=== PATIENT | female | born 1965 | race Caucasian/White ===

== ENCOUNTER 2016-11-17 08:44 | Inpatient (IN) | payer OTHER ==
[2016-11-17] VITALS (11 sets, daily range): BP systolic 88–118; BP diastolic 52–62
[~2016-11-17] VITALS: Ht 157.5 cm; Wt 68.2 kg
[~2016-11-17 08:44] MED LIST: ADVAIR 500/501 DISK IH; ADVAIR HFA120 INHAL1 IH; AMOX TR-K CLV1 EAC4 PO; AMOXICILLIN250 MG PO; AMOXICILLIN875 MG PO; ASPIR 8181 M1 PO; ASTEPRO 0.15%30 ML BOTH NARES; AZITHROMYCIN250 MG PO; AZITHROMYCIN250 MG1 PO; BACTRIM,SEPT1 TABLET PO; CARDIZEM CD,CA240 MG PO; CARDIZEM CD120 MG PO; CARDIZEM30 MG PO; CEFTIN500 MG PO; CENTRUM SILVER1 EAC3 PO; CHLORASEPTIC177 ML MM; CLEOCIN150 MG PO; CLONAZEPAM0.5 MG PO; CLONAZEPAM1 MG PO; COLACE100 MG PO; CULTURELLE CAP1 EACH PO; CYCLOBENZAPRINE10 MG PO; CYMBALTA20 MG PO; CYMBALTA60 MG PO; Cyclobenzaprine Hcl PO; DALIRESP500 MCG PO; DESYREL 150 MG150 MG PO; DESYREL100 MG PO; DETROL2 MG PO; DILTIAZEM 24HR120 MG PO; DULOXETINE HCL60 MG PO; EYE WASH IRRIG BOTH EYES; EYE WASH IRRIG LEFT EYE; FISH OIL300 MG PO; FLAGYL500 MG PO; FLEXERIL10 MG PO; GEODON20 MG PO; HYDROXYZINE HCL25 MG PO; KLONOPIN0.5 M1 PO; KLONOPIN1 MG PO; LAMICTAL XR50 MG PO; LAMICTAL100 MG PO; LAMICTAL150 M1 PO; LAMOTRIGINE25 MG PO; LIPITOR20 MG PO; LYRICA100 MG PO; LYRICA150 MG PO; LYRICA300 MG PO; LYRICA50 MG PO; LYRICA75 MG PO; MELOXICAM15 MG PO; MOBIC15 MG PO; MONTELUKAST SOD10 MG PO; NABUMETONE500 MG PO; NICOTINE PATCH1 EAC2 TD; NORCO 5/3251 TABLET PO; NYSTATIN100000 UN1 PO; OMEPRAZOLE20 MG PO; PRAVASTATIN SOD80 MG PO; PREDNISONE10 MG PO; PREDNISONE20 MG PO; PREDNISONE5 MG PO; PRILOSEC20 MG PO; PROAIR HFA8.5 GM IH; PROVENTIL HFA6.7 GM IH; PROVENTIL,2.5 MG/0.5 IH; PROVENTIL,2.5 MG/3 M IH; QUETIAPINE FUMA50 MG PO; RANITIDINE HCL150 M1 PO; ROBITUSSIN100 MG/5 M PO; Remove Nicotine Patch TD; SINGULAIR10 MG PO; SPIRIVA RESPIMAT4 GM IH; SPIRIVA1 INHALATI IH; SYMBICORT60 INHALAT IH; TAMIFLU75 MG PO; TERBINAFINE HC250 MG PO; THEO-24200 MG PO; THEO-DUR,THEOC200 MG PO; THEOPHYLLINE A200 M1 PO; THEOPHYLLINE400 MG PO; TOLTERODINE TART2 MG PO; TRAZODONE HCL150 MG PO; TUMS500 MG PO; VENTOLIN HFA18 GM IH; VICOPROFEN1 TABLET PO; VOLTAREN 1% GE100 GM TP; ZANAFLEX4 M1 PO; ZANTAC150 MG PO; ZIPRASIDONE HCL60 MG PO; ZIPRASIDONE HCL80 MG PO; ZITHROMAX Z-PA250 MG PO; ZOFRAN ODT8 MG PO; [UNRECOGNIZED DRUG - REMARK]; buspar
[2016-11-17 10:30] LABS: CHLORIDE 76 mEq/L (99-109); POTASSIUM 3.7 mEq/L (3.7-5.4); SODIUM 127 mEq/L (136-147)
[2016-11-17 10:30] LABS: INFLUENZA A VIRAL ANTIGEN NEGATIVE; INFLUENZA B VIRAL ANTIGEN NEGATIVE
[2016-11-17 10:31] LABS: MCH 25.4 PG (29.0-34.0); MCV 79.4 FL (83-99); MEAN PLAT.VOLUME 9.9 uM^3 (9.5-12.4); PLATELET COUNT 386 K/uL (156-360); RBC DIS.WIDTH-CV 14.3 % (11.8-14.6); RBC DIS.WIDTH-SD 41.6 % (39-53); RED BLOOD COUNT 2.52 M/uL (3.80-5.20); WHITE BLOOD COUNT 19.7 K/uL (4.1-10.2)
[2016-11-17 10:32] LABS: GLUCOSE 166 mg/dL (70-99)
[2016-11-17 10:34] LABS: ANION GAP 17 MEQ/L (2-14)
[2016-11-17 10:36] LABS: GFR ESTIMATE (CALCULATED) > 59 mL/min/
[2016-11-17 10:37] LABS: UREA NITROGEN (BUN) 16 mg/dL (9-23)
[2016-11-17 10:43] LABS: TROP-I INTERPRETATION NEGATIVE; TROPONIN-I < 0.01 ng/mL (0.0-0.30)
[2016-11-17] MEDS ORDERED: CLONAZEPAM1 MG PO (12:16)
[2016-11-17] MEDS ORDERED: INCRUSE ELLI62.5 MCG IH (12:27)
[2016-11-17] MEDS ORDERED: PROAIR HFA8.5 GM IH (12:27)
[2016-11-17] MEDS ORDERED: BREO ELLIPTA 21 EACH IH (12:29)
[2016-11-17] MEDS ORDERED: AZELASTINE137 MCG/0. BOTH NARES (13:08)
[2016-11-17 14:11] LABS: TOTAL BILIRUBIN 0.7 mg/dL (0.0-1.0)
[2016-11-17 14:12] LABS: ALKALINE PHOSPHATASE 158 IU/L (3-129)
[2016-11-17 14:15] LABS: DIRECT BILIRUBIN 0.4 mg/dL (0.0-0.3)
[2016-11-17 14:59] LABS: IMM.RETIC FRACTION 12.3 % (3-19); RETIC HGB EQUIVALENT 27.4 (28-36); RETICULOCYTE COUNT 0.7 % (0.5-1.8)
[2016-11-17 15:01] LABS: TOTAL BILIRUBIN 0.8 mg/dL (0.0-1.0)
[2016-11-17 15:02] LABS: ALKALINE PHOSPHATASE 171 IU/L (3-129)
[2016-11-17 15:05] LABS: DIRECT BILIRUBIN 0.5 mg/dL (0.0-0.3)
[2016-11-17 19:58] LABS: HEMATOCRIT 23.1 % (36.0-46.0); MCH 26.6 PG (29.0-34.0); MCHC 32.5 G/DL (30.0-36.0); MCV 81.9 FL (83-99); MEAN PLAT.VOLUME 9.5 uM^3 (9.5-12.4); PLATELET COUNT 388 K/uL (156-360); RBC DIS.WIDTH-CV 14.6 % (11.8-14.6); RBC DIS.WIDTH-SD 43.1 % (39-53); RED BLOOD COUNT 2.82 M/uL (3.80-5.20); WHITE BLOOD COUNT 21.9 K/uL (4.1-10.2)
[2016-11-17 20:04] LABS: BASE EXCESS 17.5 mEq/L (-3 to +3); BICARBONATE 42.3 mEq/L (22-26); CARBOXY HGB 0.6 % (0-5); METHEMOGLOBIN 0.7 % (0-1.5); PCO2 53 mm Hg (35-45); PO2 59 mm Hg (80-100); pH 7.51 (7.35-7.45)
[2016-11-17 20:05] LABS: COMMENTS - BLOOD GASES C+A+; DEVICE NC; O2 FLOW 4 L/MIN; SITE RR
[2016-11-17 20:10] LABS: INTER. NORMALIZED RATIO 1.1; PROTHROMBIN TIME 11.3 (9.2-11.2)
[2016-11-17 20:11] LABS: CHLORIDE 83 mEq/L (99-109); MAGNESIUM 1.7 mg/dL (1.3-2.7); POTASSIUM 3.9 mEq/L (3.7-5.4); SODIUM 131 mEq/L (136-147)
[2016-11-17 20:13] LABS: GLUCOSE 171 mg/dL (70-99)
[2016-11-17 20:14] LABS: ANION GAP 13 MEQ/L (2-14)
[2016-11-17 20:17] LABS: GFR ESTIMATE (CALCULATED) > 59 mL/min/; UREA NITROGEN (BUN) 11 mg/dL (9-23)
[2016-11-17 20:54] LABS: ABS NEUTROPHIL COUNT 20.9; BAND NEUTROPHILS 4.3 % (0-8.0); EOSINOPHIL ABS CT 0; INSTRUMENT ABS NEUTROPHIL CT 20.7 K/uL; LYMPHOCYTES 3.5 % (15.0-45.0); SEG.NEUTROPHILS 91.3 % (46.0-76.0)
[2016-11-17 21:15] LABS: ADD MIUA? NO; BILIRUBIN NEGATIVE; BLOOD NEGATIVE; COLOR YELLOW ((YELLOW)); GLUCOSE (STRIP) NEGATIVE; KETONES 5; LEUKOCYTES NEGATIVE; NITRITE NEGATIVE; PROTEIN (STRIP) NEGATIVE; UCUL ADDED? NO; UROBILINOGEN 0.2 MG/DL (0.2-1.0)
[2016-11-17 22:00] LABS: METH RESISTANT S AUREUS PCR NEGATIVE (NEGATIVE)
[2016-11-17 22:05] LABS: PROBE CHECK PASS; SPECIMEN PROCESSING CONTROL PASS
[2016-11-18] VITALS (23 sets, daily range): BP systolic 96–145; BP diastolic 51–66
[2016-11-18 01:39] LABS: IRON 93 MCG/DL (35-150)
[2016-11-18 05:38] LABS: AMPHETAMINES QUANT VALUE 0 NG/ML; BARBITUATES QUANT VALUE 0 NG/ML; BENZODIAZEPINES QUANT VALUE 0 NG/ML; BENZODIAZEPINES, URINE SCREEN Negative (200 ng/mL); OPIATES QUANTITATIVE VALUE 0 NG/ML; PHENCYCLIDINE QUANT VALUE 0 NG/ML
[2016-11-18 05:56] LABS: BASE EXCESS 12.7 mEq/L (-3 to +3); BICARBONATE 38.5 mEq/L (22-26); CARBOXY HGB 0.9 % (0-5); COMMENTS - BLOOD GASES C+A+; DEVICE VENTURI MASK; FI02 50 %; METHEMOGLOBIN 1.1 % (0-1.5); O2 FLOW 12 L/MIN; PCO2 58 mm Hg (35-45); PO2 59 mm Hg (80-100); SITE RR; pH 7.43 (7.35-7.45)
[2016-11-18 07:09] LABS: HEMATOCRIT 26.7 % (36.0-46.0); MCH 27.6 PG (29.0-34.0); MCHC 33.3 G/DL (30.0-36.0); MCV 82.9 FL (83-99); MEAN PLAT.VOLUME 9.3 uM^3 (9.5-12.4); PLATELET COUNT 306 K/uL (156-360); RBC DIS.WIDTH-CV 14.2 % (11.8-14.6); RBC DIS.WIDTH-SD 42.7 % (39-53); RED BLOOD COUNT 3.22 M/uL (3.80-5.20)
[2016-11-18 07:12] LABS: WHITE BLOOD COUNT 13.7 K/uL (4.1-10.2)
[2016-11-18 08:12] LABS: ANION GAP 11 MEQ/L (2-14); CHLORIDE 87 MEQ/L (99-109); GFR ESTIMATE (CALCULATED) > 59 mL/min/; GLUCOSE 171 mg/dL (70-99); POTASSIUM 3.2 MEQ/L (3.7-5.4); SAMPLE HEMOLYSIS CHECK 0; SAMPLE ICTERIC CHECK 0; SAMPLE LIPEMIA CHECK 0; SODIUM 132 MEQ/L (136-147); UREA NITROGEN (BUN) 8 mg/dL (9-23)
[2016-11-19] VITALS (25 sets, daily range): BP systolic 0–121; BP diastolic 0–67
[2016-11-19 05:22] LABS: HEMATOCRIT 21.7 % (36.0-46.0); MCH 27.5 PG (29.0-34.0); MCHC 32.3 G/DL (30.0-36.0); MCV 85.1 FL (83-99); MEAN PLAT.VOLUME 9.6 uM^3 (9.5-12.4); PLATELET COUNT 229 K/uL (156-360); RBC DIS.WIDTH-CV 14.7 % (11.8-14.6); RBC DIS.WIDTH-SD 45.5 % (39-53)
[2016-11-19 05:37] LABS: RED BLOOD COUNT 2.55 M/uL (3.80-5.20)
[2016-11-19 06:29] LABS: ANION GAP 8 MEQ/L (2-14); GFR ESTIMATE (CALCULATED) > 59 mL/min/; GLUCOSE 199 mg/dL (70-99); MAGNESIUM 1.6 mg/dl (1.3-2.7); SAMPLE HEMOLYSIS CHECK 0; SAMPLE ICTERIC CHECK 0; SAMPLE LIPEMIA CHECK 0; UREA NITROGEN (BUN) 11 mg/dL (9-23)
[2016-11-19 06:30] LABS: SODIUM 140 MEQ/L (136-147)
[2016-11-19 06:31] LABS: CHLORIDE 99 MEQ/L (99-109)
[2016-11-19 11:59] LABS: ANTI-HEPATITIS A VIRUS (IGM) Nonreactive; HAV INDEX 0.14; HBSG INDEX 0.22; HPCA INDEX 0.24
[2016-11-19 12:01] LABS: ANTI-HEPATITIS B CORE (IGM) Nonreactive; HBC IgM INDEX 0.07
[2016-11-19 13:39] LABS: MCH 27.5 PG (29.0-34.0); MCHC 32.4 G/DL (30.0-36.0); MEAN PLAT.VOLUME 10.7 uM^3 (9.5-12.4); NRBC (%) 0.2 /100 WBC (0-0); PLATELET COUNT 191 K/uL (156-360); RBC DIS.WIDTH-SD 46.3 % (39-53); RED BLOOD COUNT 2.47 M/uL (3.80-5.20); WHITE BLOOD COUNT 10.6 K/uL (4.1-10.2)
[2016-11-20] VITALS (13 sets, daily range): BP systolic 98–118; BP diastolic 44–73
[2016-11-20 04:57] LABS: MCHC 32.1 G/DL (30.0-36.0); MCV 84.2 FL (83-99); PLATELET COUNT 189 K/uL (156-360); RBC DIS.WIDTH-CV 15.6 % (11.8-14.6); RBC DIS.WIDTH-SD 47.7 % (39-53); RED BLOOD COUNT 2.85 M/uL (3.80-5.20); WHITE BLOOD COUNT 9.1 K/uL (4.1-10.2)
[2016-11-20 05:15] LABS: POTASSIUM 4.6 mEq/L (3.7-5.4); SODIUM 137 mEq/L (136-147)
[2016-11-20 05:16] LABS: MAGNESIUM 1.9 mg/dL (1.3-2.7)
[2016-11-20 05:17] LABS: GLUCOSE 204 mg/dL (70-99)
[2016-11-20 05:18] LABS: ANION GAP 7 MEQ/L (2-14)
[2016-11-20 05:21] LABS: GFR ESTIMATE (CALCULATED) > 59 mL/min/
[2016-11-20 05:22] LABS: UREA NITROGEN (BUN) 13 mg/dL (9-23)
[2016-11-20 05:29] LABS: CHLORIDE 99 mEq/L (99-109)
[2016-11-21] VITALS (9 sets, daily range): BP systolic 101–129; BP diastolic 55–70
[2016-11-21 07:43] LABS: HEMATOCRIT 23.9 % (36.0-46.0); MCH 28.4 PG (29.0-34.0); MCHC 32.6 G/DL (30.0-36.0); MCV 86.9 FL (83-99); PLATELET COUNT 200 K/uL (156-360); RBC DIS.WIDTH-SD 51.1 % (39-53); RED BLOOD COUNT 2.75 M/uL (3.80-5.20); WHITE BLOOD COUNT 6.6 K/uL (4.1-10.2)
[2016-11-21 08:22] LABS: ANION GAP 5 MEQ/L (2-14); CHLORIDE 98 MEQ/L (99-109); GFR ESTIMATE (CALCULATED) > 59 mL/min/; GLUCOSE 168 mg/dL (70-99); MAGNESIUM 1.7 mg/dl (1.3-2.7); POTASSIUM 4.7 MEQ/L (3.7-5.4); SAMPLE HEMOLYSIS CHECK 0; SAMPLE ICTERIC CHECK 0; SAMPLE LIPEMIA CHECK 0; SODIUM 138 MEQ/L (136-147); UREA NITROGEN (BUN) 15 mg/dL (9-23)
[2016-11-22] VITALS (8 sets, daily range): BP systolic 100–123; BP diastolic 56–66
[2016-11-22 05:27] LABS: MCH 27.9 PG (29.0-34.0); MCHC 31.7 G/DL (30.0-36.0); MEAN PLAT.VOLUME 9.4 uM^3 (9.5-12.4); PLATELET COUNT 214 K/uL (156-360); RBC DIS.WIDTH-CV 15.4 % (11.8-14.6); RBC DIS.WIDTH-SD 50.1 % (39-53); WHITE BLOOD COUNT 7.4 K/uL (4.1-10.2)
[2016-11-22 05:31] LABS: RED BLOOD COUNT 3.41 M/uL (3.80-5.20)
[2016-11-22 05:51] LABS: ANION GAP 6 MEQ/L (2-14); CHLORIDE 99 MEQ/L (99-109); GFR ESTIMATE (CALCULATED) > 59 mL/min/; GLUCOSE 200 mg/dL (70-99); MAGNESIUM 1.6 mg/dl (1.3-2.7); POTASSIUM 4.9 MEQ/L (3.7-5.4); SAMPLE HEMOLYSIS CHECK 0; SAMPLE ICTERIC CHECK 0; SAMPLE LIPEMIA CHECK 0; SODIUM 139 MEQ/L (136-147); UREA NITROGEN (BUN) 12 mg/dL (9-23)
[2016-11-23 03:11] VITALS: BP 131/63
[2016-11-23 06:28] LABS: HEMATOCRIT 29.8 % (36.0-46.0); MCH 28.3 PG (29.0-34.0); MCHC 31.9 G/DL (30.0-36.0); MCV 88.7 FL (83-99); MEAN PLAT.VOLUME 9.4 uM^3 (9.5-12.4); PLATELET COUNT 201 K/uL (156-360); RBC DIS.WIDTH-CV 15.5 % (11.8-14.6); RBC DIS.WIDTH-SD 50.1 % (39-53); RED BLOOD COUNT 3.36 M/uL (3.80-5.20); WHITE BLOOD COUNT 7.5 K/uL (4.1-10.2)
[2016-11-23 06:53] LABS: ANION GAP 5 MEQ/L (2-14); CHLORIDE 97 MEQ/L (99-109); GFR ESTIMATE (CALCULATED) > 59 mL/min/; GLUCOSE 192 mg/dL (70-99); MAGNESIUM 1.6 mg/dl (1.3-2.7); POTASSIUM 4.6 MEQ/L (3.7-5.4); SAMPLE HEMOLYSIS CHECK 0; SAMPLE ICTERIC CHECK 0; SAMPLE LIPEMIA CHECK 0; SODIUM 137 MEQ/L (136-147); UREA NITROGEN (BUN) 11 mg/dL (9-23)
[2016-11-23 07:15] VITALS: BP 120/69
[2016-11-23 11:44] VITALS: BP 113/55
[2016-11-23 17:00] VITALS: BP 115/65
[2016-11-23 19:43] VITALS: BP 116/61
[2016-11-24] VITALS (7 sets, daily range): BP systolic 108–124; BP diastolic 56–70
[2016-11-24 04:51] LABS: HEMATOCRIT 29.8 % (36.0-46.0); MCH 27.9 PG (29.0-34.0); MCHC 31.5 G/DL (30.0-36.0); MCV 88.4 FL (83-99); MEAN PLAT.VOLUME 9.4 uM^3 (9.5-12.4); PLATELET COUNT 219 K/uL (156-360); RBC DIS.WIDTH-CV 15.3 % (11.8-14.6); RBC DIS.WIDTH-SD 49.5 % (39-53); RED BLOOD COUNT 3.37 M/uL (3.80-5.20); WHITE BLOOD COUNT 8.1 K/uL (4.1-10.2)
[2016-11-24 05:14] LABS: CHLORIDE 98 mEq/L (99-109); POTASSIUM 4.6 mEq/L (3.7-5.4); SODIUM 139 mEq/L (136-147)
[2016-11-24 05:16] LABS: GLUCOSE 267 mg/dL (70-99)
[2016-11-24 05:17] LABS: ANION GAP 4 MEQ/L (2-14)
[2016-11-24 05:19] LABS: MAGNESIUM 1.5 mg/dL (1.3-2.7)
[2016-11-24 05:20] LABS: GFR ESTIMATE (CALCULATED) > 59 mL/min/
[2016-11-24 05:21] LABS: UREA NITROGEN (BUN) 10 mg/dL (9-23)
[2016-11-24 16:46] LABS: INTER. NORMALIZED RATIO 1.1; PROTHROMBIN TIME 11.4 (9.2-11.2); PTT 24.4 (25-32)
[2016-11-25 03:37] VITALS: BP 118/60
[2016-11-25 04:36] LABS: HEMATOCRIT 30.8 % (36.0-46.0); MCH 27.5 PG (29.0-34.0); MCHC 30.8 G/DL (30.0-36.0); MEAN PLAT.VOLUME 9.3 uM^3 (9.5-12.4); NRBC (%) 0.3 /100 WBC (0-0); PLATELET COUNT 212 K/uL (156-360); RBC DIS.WIDTH-CV 15.3 % (11.8-14.6); RBC DIS.WIDTH-SD 49.5 % (39-53); RED BLOOD COUNT 3.46 M/uL (3.80-5.20); WHITE BLOOD COUNT 7.6 K/uL (4.1-10.2)
[2016-11-25 04:44] LABS: CHLORIDE 97 mEq/L (99-109); POTASSIUM 4.9 mEq/L (3.7-5.4); SODIUM 139 mEq/L (136-147)
[2016-11-25 04:46] LABS: MAGNESIUM 1.8 mg/dL (1.3-2.7)
[2016-11-25 04:47] LABS: INTER. NORMALIZED RATIO 1.1; PROTHROMBIN TIME 11.6 (9.2-11.2); PTT 55.8 (25-32)
[2016-11-25 04:48] LABS: ANION GAP 2 MEQ/L (2-14)
[2016-11-25 04:50] LABS: GFR ESTIMATE (CALCULATED) > 59 mL/min/
[2016-11-25 04:57] LABS: GLUCOSE 236 mg/dL (70-99)
[2016-11-25 05:02] LABS: UREA NITROGEN (BUN) 10 mg/dL (9-23)
[2016-11-25 07:07] VITALS: BP 122/64
[2016-11-25 11:54] LABS: TOTAL BILIRUBIN 0.3 mg/dL (0.0-1.0)
[2016-11-25 12:13] LABS: ALKALINE PHOSPHATASE 91 IU/L (3-129)
[2016-11-25 12:16] LABS: DIRECT BILIRUBIN 0.2 mg/dL (0.0-0.3)
[2016-11-25 19:55] VITALS: BP 114/59
[2016-11-25 20:00] VITALS: BP 114/59
[2016-11-26 03:50] VITALS: BP 111/57
[2016-11-26 06:43] LABS: HEMATOCRIT 32.1 % (36.0-46.0); MCH 27.8 PG (29.0-34.0); MCHC 30.8 G/DL (30.0-36.0); MCV 90.2 FL (83-99); MEAN PLAT.VOLUME 9.6 uM^3 (9.5-12.4); PLATELET COUNT 238 K/uL (156-360); RBC DIS.WIDTH-CV 15.7 % (11.8-14.6); RBC DIS.WIDTH-SD 51.8 % (39-53); RED BLOOD COUNT 3.56 M/uL (3.80-5.20); WHITE BLOOD COUNT 7.8 K/uL (4.1-10.2)
[2016-11-26 06:54] LABS: INTER. NORMALIZED RATIO 1.4; PROTHROMBIN TIME 14.2 (9.2-11.2); PTT 36.1 (25-32)
[2016-11-26 08:15] VITALS: BP 114/65
[2016-11-26 11:49] VITALS: BP 107/51
[2016-11-26 16:30] VITALS: BP 110/57
[2016-11-26 19:52] VITALS: BP 120/80
[2016-11-26 23:33] VITALS: BP 106/58
[2016-11-27 03:46] VITALS: BP 104/51
[2016-11-27 03:47] LABS: HEMATOCRIT 33.4 % (36.0-46.0); MCH 27.6 PG (29.0-34.0); MCHC 30.8 G/DL (30.0-36.0); MCV 89.5 FL (83-99); PLATELET COUNT 189 K/uL (156-360); RBC DIS.WIDTH-CV 15.9 % (11.8-14.6); RED BLOOD COUNT 3.73 M/uL (3.80-5.20); WHITE BLOOD COUNT 7.2 K/uL (4.1-10.2)
[2016-11-27 03:50] LABS: MEAN PLAT.VOLUME 11.8 uM^3 (9.5-12.4)
[2016-11-27 03:58] LABS: INTER. NORMALIZED RATIO 2.4
[2016-11-27 04:02] LABS: PROTHROMBIN TIME 24.6 (9.2-11.2)
[2016-11-27 08:33] LABS: Estimated Average Glucose 154 mg/dL (70-123)
[2016-11-27 09:00] VITALS: BP 104/51
[2016-11-27 11:30] VITALS: BP 104/52
[2016-11-27 17:25] VITALS: BP 102/52
[2016-11-27 19:52] VITALS: BP 109/61
[2016-11-27 23:57] VITALS: BP 110/88
[2016-11-28 04:12] VITALS: BP 109/81
[2016-11-28 04:27] LABS: C DIFF TOXIN NEGATIVE (NEGATIVE)
[2016-11-28 04:28] LABS: PROBE CHECK PASS; SPECIMEN PROCESSING CONTROL PASS
[2016-11-28 05:57] LABS: PROTHROMBIN TIME 32.1 (9.2-11.2); PTT 63.6 (25-32)
[2016-11-28 07:18] VITALS: BP 110/55
[2016-11-28 10:57] VITALS: BP 103/59
[2016-11-28 14:58] VITALS: BP 114/63
[2016-11-28 20:00] VITALS: BP 110/67
[2016-11-28 23:27] VITALS: BP 118/65
[2016-11-29 03:31] VITALS: BP 108/60
[2016-11-29 06:50] LABS: HEMATOCRIT 31.3 % (36.0-46.0); MCH 28.9 PG (29.0-34.0); MCHC 31.6 G/DL (30.0-36.0); MCV 91.3 FL (83-99); MEAN PLAT.VOLUME 10.2 uM^3 (9.5-12.4); PLATELET COUNT 283 K/uL (156-360); RBC DIS.WIDTH-CV 17.2 % (11.8-14.6); RBC DIS.WIDTH-SD 56.6 % (39-53); RED BLOOD COUNT 3.43 M/uL (3.80-5.20); WHITE BLOOD COUNT 6.9 K/uL (4.1-10.2)
[2016-11-29 07:18] VITALS: BP 114/63
[2016-11-29 07:25] LABS: INTER. NORMALIZED RATIO 2.2; PROTHROMBIN TIME 22.6 (9.2-11.2)
[2016-11-29 11:01] VITALS: BP 113/63
[2016-11-29] MEDS ORDERED: DILTIAZEM 24HR180 MG PO (11:04)
[2016-11-29] MEDS ORDERED: FOLIC ACID1 MG PO (11:08)
[2016-11-29] MEDS ORDERED: OXYCONTIN15 MG PO (11:09)
[2016-11-29] MEDS ORDERED: OXYCODONE HCL5 MG PO (11:09)
[2016-11-29] MEDS ORDERED: LYRICA75 MG PO (11:09)
[2016-11-29] MEDS ORDERED: PREDNISONE5 MG PO (11:09)
[2016-11-29] MEDS ORDERED: CLONAZEPAM1 MG PO (11:09)
[2016-11-29] MEDS ORDERED: AUGMENTIN875 MG PO (11:11)
[2016-11-29] MEDS ORDERED: COUMADIN3 MG PO (11:11)
[2016-11-29 14:55] VITALS: BP 116/64
== END 2016-11-29 18:26 | DRG 356 ==
LOC: EME 08:44 → 4EAST 13:34 → 4WEST 13:34 → EDOF 13:34 → 4EAST 14:32 → 4WEST 18:12 → 4EAST 11-20 17:47 → 5SOUTH 11-27 19:08 → 4EAST 11-27 19:22 → 5SOUTH 11-27 19:31
PROVIDERS: Emergency Medicine; Hospitalist; Internal Medicine; Internal Medicine Critical Care Medicine
PROC: 30233N1 Transfusion of Nonautologous Red Blood Cells into Peripheral Vein, Percutaneous Approach (ICD-10-PCS; principal; 2016-11-17)
PROC: 0W9H30Z Drainage of Retroperitoneum with Drainage Device, Percutaneous Approach (ICD-10-PCS; 2016-11-18)
PROC: 06H03DZ Insertion of Intraluminal Device into Inferior Vena Cava, Percutaneous Approach (ICD-10-PCS; 2016-11-19)
PROC: 0WW Anatomical Regions, General, Revision (ICD-10-PCS; 2016-11-20)
PROC: 0W9H30Z Drainage of Retroperitoneum with Drainage Device, Percutaneous Approach (ICD-10-PCS; 2016-11-21)
PROC: 0W9H30Z Drainage of Retroperitoneum with Drainage Device, Percutaneous Approach (ICD-10-PCS; 2016-11-27)
PROC: 0WPH30Z Removal of Drainage Device from Retroperitoneum, Percutaneous Approach (ICD-10-PCS; 2016-11-27)
PROC: 0WPH30Z Removal of Drainage Device from Retroperitoneum, Percutaneous Approach (ICD-10-PCS; 2016-11-28)
PROC: 0W9H30Z Drainage of Retroperitoneum with Drainage Device, Percutaneous Approach (ICD-10-PCS; 2016-11-28)
DX: K68.19 Other retroperitoneal abscess (principal); S36.892A Contusion of other intra-abdominal organs, initial encounter; W19.XXXA Unspecified fall, initial encounter; Y92.009 Unspecified place in unspecified non-institutional (private) residence as the place of occurrence of the external cause; R78.81 Bacteremia; B96.89 Other specified bacterial agents as the cause of diseases classified elsewhere; I82.423 Acute embolism and thrombosis of iliac vein, bilateral; D62 Acute posthemorrhagic anemia; J96.11 Chronic respiratory failure with hypoxia; J44.1 Chronic obstructive pulmonary disease with (acute) exacerbation; Z99.81 Dependence on supplemental oxygen; I47.1 Supraventricular tachycardia; T85.618A Breakdown (mechanical) of other specified internal prosthetic devices, implants and grafts, initial encounter; Y84.8 Other medical procedures as the cause of abnormal reaction of the patient, or of later complication, without mention of misadventure at the time of the procedure; R91.8 Other nonspecific abnormal finding of lung field; S80.01XA Contusion of right knee, initial encounter; S80.02XA Contusion of left knee, initial encounter; X50.9XXA Other and unspecified overexertion or strenuous movements or postures, initial encounter; E43 Unspecified severe protein-calorie malnutrition; Z68.25 Body mass index [BMI] 25.0-25.9, adult; G89.18 Other acute postprocedural pain; M54.9 Dorsalgia, unspecified; E78.5 Hyperlipidemia, unspecified; K59.00 Constipation, unspecified; K21.9 Gastro-esophageal reflux disease without esophagitis; M79.7 Fibromyalgia; J45.909 Unspecified asthma, uncomplicated; F32.9 Major depressive disorder, single episode, unspecified; F41.9 Anxiety disorder, unspecified; M51.27 Other intervertebral disc displacement, lumbosacral region; R29.6 Repeated falls; M19.90 Unspecified osteoarthritis, unspecified site; F17.210 Nicotine dependence, cigarettes, uncomplicated; Z95.818 Presence of other cardiac implants and grafts; Z86.711 Personal history of pulmonary embolism; Z60.2 Problems related to living alone; Z90.710 Acquired absence of both cervix and uterus
CPT/HCPCS: 10030; 36600; 49406; 70450; 71010; 71020; 71275; 72125; 72128; 72129; 72131; 72132; 73560; 74177; 80048; 80048 91; 80074; 80076; 80202; 80306 90; 81003; 82272; 82607; 82728; 82746; 82803; 83036; 83540; 83605; 83735; 83930; 83935; 84100; 84443; 84466; 84484; 85025; 85027; 85045; 85610; 85651; 85730; 86900; 86901; 86905; 86920; 87040; 87070; 87075; 87076; 87077; 87185; 87205; 87493; 87502; 87506; 87641; 87801; 93005; 93970; 93971; 94010; 94640; 94640 76; 94799; 97530 GP; 99202; 99281; 99285; C1729; C1769; C9113; J0131; J0295; J1644; J2250; J2270; J2405; J2543; J2920; J3010; J3370; J3475; J3480; J7030; J7040; J7042; J7050; J7512; P9016; P9045; S0030

== ENCOUNTER 2016-12-03 20:57 | Inpatient (IN) | payer OTHER ==
[~2016-12-03] VITALS: Ht 160 cm; Wt 61.7 kg
[~2016-12-03 20:57] MED LIST changes: +AUGMENTIN875 MG PO; +AZELASTINE137 MCG/0. BOTH NARES; +BREO ELLIPTA 21 EACH IH; +COUMADIN3 MG PO; +DILTIAZEM 24HR180 MG PO; +FOLIC ACID1 MG PO; +INCRUSE ELLI62.5 MCG IH; +OXYCODONE HCL5 MG PO; +OXYCONTIN15 MG PO
[2016-12-03 21:53] LABS: HEMATOCRIT 26.9 % (36.0-46.0); MCH 28.7 PG (29.0-34.0); MCHC 32.3 G/DL (30.0-36.0); MCV 88.8 FL (83-99); MEAN PLAT.VOLUME 9.5 uM^3 (9.5-12.4); PLATELET COUNT 259 K/uL (156-360); RBC DIS.WIDTH-SD 58.5 % (39-53); RED BLOOD COUNT 3.03 M/uL (3.80-5.20)
[2016-12-03 22:05] LABS: CHLORIDE 97 mEq/L (99-109); SODIUM 135 mEq/L (136-147)
[2016-12-03 22:06] LABS: INTER. NORMALIZED RATIO 1.5; PROTHROMBIN TIME 15.5 (9.2-11.2); PTT 40.3 (25-32)
[2016-12-03 22:07] LABS: GLUCOSE 158 mg/dL (70-99)
[2016-12-03 22:08] LABS: ANION GAP 8 MEQ/L (2-14)
[2016-12-03 22:09] LABS: TOTAL BILIRUBIN 0.5 mg/dL (0.0-1.0)
[2016-12-03 22:10] LABS: ALKALINE PHOSPHATASE 93 IU/L (3-129)
[2016-12-03 22:11] LABS: GFR ESTIMATE (CALCULATED) > 59 mL/min/
[2016-12-03 22:12] LABS: UREA NITROGEN (BUN) 14 mg/dL (9-23)
[2016-12-03 22:14] LABS: LIPASE 13 U/L (1.0-51.0)
[2016-12-03 22:21] LABS: QUANTITATIVE HCG < 4.0 MIU/ML
[2016-12-03 22:24] LABS: POTASSIUM 3.7 mEq/L (3.7-5.4)
[2016-12-04] MEDS ORDERED: CARDIZEM CD,CA180 MG PO (00:37)
[2016-12-04] MEDS ORDERED: FOLIC ACID1 MG PO (00:38)
[2016-12-04] MEDS ORDERED: PREDNISONE5 MG PO ×3 (00:39→00:46)
[2016-12-04] MEDS ORDERED: WARFARIN SODIUM3 MG PO (00:42)
[2016-12-04] MEDS ORDERED: AMOXICILLIN875 MG PO (00:43)
[2016-12-04] MEDS ORDERED: DULCOLAX10 MG PR (00:48)
[2016-12-04] MEDS ORDERED: FLEET ENEMA-AD118 ML PR (00:50)
[2016-12-04] MEDS ORDERED: OXYCODONE HCL5 MG PO (00:50)
[2016-12-04] MEDS ORDERED: PHILLIPS'400 MG/5 M PO (00:50)
[2016-12-04] MEDS ORDERED: TYLENOL REGULA325 MG PO ×2 (00:51→00:52)
[2016-12-04 02:55] LABS: ADD MIUA? YES; BILIRUBIN NEGATIVE; BLOOD SMALL; COLOR YELLOW ((YELLOW)); GLUCOSE (STRIP) NEGATIVE; KETONES NEGATIVE; LEUKOCYTES TRACE; NITRITE NEGATIVE; PROTEIN (STRIP) NEGATIVE; UROBILINOGEN 0.2 MG/DL (0.2-1.0)
[2016-12-04 03:14] LABS: BACTERIA NONE SEEN /HPF; EPITHELIAL CELLS 1+ /HPF; MUCUS TRACE /LPF; RED BLOOD CELLS 15-20 /HPF (0-5); UCUL ADDED? NO
[2016-12-04 03:42] LABS: SPECIFIC GRAVITY 1.064 (1.000-1.030)
[2016-12-04 04:05] VITALS: BP 115/53
[2016-12-04 07:12] VITALS: BP 99/51
[2016-12-04 08:32] LABS: METH RESISTANT S AUREUS PCR NEGATIVE (NEGATIVE); PROBE CHECK PASS; SPECIMEN PROCESSING CONTROL PASS
[2016-12-04 09:19] LABS: HEMATOCRIT 28.8 % (36.0-46.0); MCHC 31.3 G/DL (30.0-36.0); MEAN PLAT.VOLUME 10.1 uM^3 (9.5-12.4); PLATELET COUNT 276 K/uL (156-360); RBC DIS.WIDTH-CV 18.6 % (11.8-14.6); RBC DIS.WIDTH-SD 62.7 % (39-53); WHITE BLOOD COUNT 7.7 K/uL (4.1-10.2)
[2016-12-04 09:21] LABS: MCV 92.9 FL (83-99)
[2016-12-04 11:01] LABS: INTER. NORMALIZED RATIO 1.5; PROTHROMBIN TIME 15.8 (9.2-11.2)
[2016-12-04 12:05] VITALS: BP 101/53
[2016-12-04 15:14] VITALS: BP 116/57
[2016-12-04 18:45] VITALS: BP 132/67
[2016-12-04 19:20] VITALS: BP 132/67
[2016-12-05] VITALS: BP 117/58
[2016-12-05 05:08] LABS: POINT-OF-CARE METER ID UU13113698
[2016-12-05 05:38] LABS: ALKALINE PHOSPHATASE 96 IU/L (3-129); ANION GAP 3 MEQ/L (2-14); CHLORIDE 101 MEQ/L (99-109); GFR ESTIMATE (CALCULATED) > 59 mL/min/; GLUCOSE 167 mg/dL (70-99); SAMPLE HEMOLYSIS CHECK 0; SAMPLE ICTERIC CHECK 0; SAMPLE LIPEMIA CHECK 0; TOTAL BILIRUBIN 0.3 MG/DL (0.0-1.0); UREA NITROGEN (BUN) 9 mg/dL (9-23)
[2016-12-05 05:41] LABS: POTASSIUM 4.6 MEQ/L (3.7-5.4); SODIUM 142 MEQ/L (136-147)
[2016-12-05 06:01] LABS: INTER. NORMALIZED RATIO 1.4; PROTHROMBIN TIME 13.9 (9.2-11.2)
[2016-12-05 06:41] LABS: HEMATOCRIT 27.7 % (36.0-46.0); MCH 29.2 PG (29.0-34.0); MCHC 31.8 G/DL (30.0-36.0); PLATELET COUNT 258 K/uL (156-360); RBC DIS.WIDTH-CV 18.5 % (11.8-14.6); RBC DIS.WIDTH-SD 61.8 % (39-53); RED BLOOD COUNT 3.01 M/uL (3.80-5.20); WHITE BLOOD COUNT 5.1 K/uL (4.1-10.2)
[2016-12-05 08:41] VITALS: BP 108/51
[2016-12-05 08:44] LABS: TROP-I INTERPRETATION NEGATIVE; TROPONIN-I < 0.01 ng/mL (0.0-0.30)
[2016-12-05 11:43] VITALS: BP 121/55
[2016-12-05 15:37] VITALS: BP 120/65
[2016-12-05 19:05] VITALS: BP 116/55
[2016-12-05 23:43] VITALS: BP 110/52
[2016-12-06 06:07] LABS: INTER. NORMALIZED RATIO 1.8; PROTHROMBIN TIME 18.2 (9.2-11.2)
[2016-12-06 07:48] VITALS: BP 117/56
[2016-12-06 11:33] VITALS: BP 105/50
[2016-12-06 16:00] VITALS: BP 116/55
[2016-12-06 19:30] VITALS: BP 120/64
[2016-12-07] VITALS (7 sets, daily range): BP systolic 105–131; BP diastolic 51–64
[2016-12-07 07:14] LABS: INTER. NORMALIZED RATIO 2.1; PROTHROMBIN TIME 21.4 (9.2-11.2)
[2016-12-08 03:15] VITALS: BP 90/53
[2016-12-08 06:26] LABS: HEMATOCRIT 29.3 % (36.0-46.0); MCH 28.9 PG (29.0-34.0); MCHC 30.7 G/DL (30.0-36.0); MCV 94.2 FL (83-99); MEAN PLAT.VOLUME 9.6 uM^3 (9.5-12.4); PLATELET COUNT 262 K/uL (156-360); RBC DIS.WIDTH-CV 19.9 % (11.8-14.6); RBC DIS.WIDTH-SD 67.8 % (39-53); RED BLOOD COUNT 3.11 M/uL (3.80-5.20); WHITE BLOOD COUNT 6.6 K/uL (4.1-10.2)
[2016-12-08 06:36] LABS: INTER. NORMALIZED RATIO 1.6
[2016-12-08 07:07] VITALS: BP 97/55
== END 2016-12-08 11:12 | DRG 190 ==
LOC: EME 20:57 → 4EAST 12-04 00:50 → EDOF 12-04 00:50 → 4EAST 12-04 03:36
PROVIDERS: Emergency Medicine; Internal Medicine; Internal Medicine Cardiovascular Disease
DX: J44.0 Chronic obstructive pulmonary disease with (acute) lower respiratory infection (principal); J18.0 Bronchopneumonia, unspecified organism; G40.909 Epilepsy, unspecified, not intractable, without status epilepticus; K21.9 Gastro-esophageal reflux disease without esophagitis; F32.9 Major depressive disorder, single episode, unspecified; K68.19 Other retroperitoneal abscess; Z86.718 Personal history of other venous thrombosis and embolism; Z87.891 Personal history of nicotine dependence; Z86.711 Personal history of pulmonary embolism; E78.5 Hyperlipidemia, unspecified; G89.4 Chronic pain syndrome; Z74.01 Bed confinement status; I47.1 Supraventricular tachycardia; Z99.81 Dependence on supplemental oxygen; Z91.81 History of falling; M79.7 Fibromyalgia; D63.8 Anemia in other chronic diseases classified elsewhere; G93.40 Encephalopathy, unspecified
CPT/HCPCS: 71275; 73020; 73030; 73502; 74177; 80053; 81003; 82948; 83605; 83690; 84484; 84702; 85027; 85610; 85730; 86860; 86870; 86880; 86900; 86901; 86905; 86920; 87040; 87641; 92610 GN; 93005; 94640; 94640 76; 94760; 94799; 97530 GO; 99202; 99281; 99285; J0692; J0696; J1650; J3010; J7030; J7050; J7512